=== PATIENT | male | born 1955 | race Caucasian/White ===

== ENCOUNTER 2020-08-16 22:54 | Inpatient (IN) | payer OTHER ==
[~2020-08-16] VITALS: Ht 175.3 cm; Wt 111.5 kg
[~2020-08-16 22:54] MED LIST: ADDERALL 30 MG30 MG PO; ADVAIR HFA 1112 UNIT INH; ASPIRIN325 PO; CHLORTHALIDONE25 MG PO; CLEOCIN HCL300 MG PO; LIPITOR40 MG PO; METFORMIN HCL500 MG; MINOCIN100 MG PO; NICOTINE TRANSD21 M1 TD; PREDNISONE 10 M10 M1 PO; PREDNISONE 20 M20 M1 PO; SEROQUEL XR200 MG PO; SPIRIVA INH; SYMBICORT160 MCG/4. INH; SYNTHROID50 MCG PO; TRINATAL ULTRA1 EACH PO; VITAMIN B-1100 M1 PO
[2020-08-16 22:56] VITALS: BP 153/80
[2020-08-16 23:36] LABS: ABSOLUTE NEUTROPHILS 13.7 thou/uL (1.4-8.2); BASOPHILS 0.5 % (0.0-2.0); EOSINOPHILS 0.6 % (0.0-3.0); HEMATOCRIT 32.1 % (42.0-52.0); HEMOGLOBIN 10.5 gm/dL (14.0-18.0); LYMPHOCYTES 3.5 % (24.0-44.0); MCH 31.1 pg (26.0-34.0); MCHC 32.9 g/dL (28.0-37.0); MCV 94.6 fL (80.0-100.0); MONOCYTES 11.5 % (1.0-8.0); PLATELET COUNT 256 thou/uL (150-400); POLYS 83.9 % (36.0-66.0); RBC 3.39 mil/uL (4.50-6.00); RDW 14.1 % (10.5-14.5); WBC 16.3 thou/uL (4.0-11.0)
[2020-08-16] MEDS ORDERED: PROAIR HFA8.5 GM INH (23:47)
[2020-08-16 23:48] LABS: ALBUMIN 2.1 g/dL (3.4-5.0); CALCIUM 8.6 mg/dL (8.5-10.1); CREATININE 1.2 mg/dL (0.7-1.3); DIRECT BILIRUBIN 0.8 mg/dL (<0.1-0.2); TOTAL BILIRUBIN 1.1 mg/dL (0.2-1.0); TOTAL PROTEIN 6.7 g/dL (6.4-8.2)
[2020-08-16] MEDS ORDERED: ALPRAZOLAM XR3 MG PO (23:48)
[2020-08-16] MEDS ORDERED: PERCOCET 5-3251 EACH PO (23:51)
[2020-08-16 23:58] LABS: POTASSIUM 2.9 mmol/L (3.5-5.1)
[2020-08-17 00:51] LABS: URINE BILIRUBIN NEGATIVE (Negative); URINE BLOOD NEGATIVE (Negative); URINE CLARITY CLEAR; URINE COLOR YELLOW; URINE GLUCOSE-RANDOM* NEGATIVE (Negative); URINE KETONES NEGATIVE (Negative); URINE LEUKOCYTES-REFLEX NEGATIVE (Negative); URINE NITRITE-REFLEX NEGATIVE (Negative); URINE PROTEIN (DIPSTICK) NEGATIVE (Negative); URINE UROBILINOGEN 0.2 E.U./dl (0.2-1.0)
[2020-08-17 06:11] LABS: HEMATOCRIT 32.5 % (42.0-52.0); HEMOGLOBIN 10.6 gm/dL (14.0-18.0); MCH 31.1 pg (26.0-34.0); MCHC 32.7 g/dL (28.0-37.0); MCV 95.2 fL (80.0-100.0); RBC 3.41 mil/uL (4.50-6.00); RDW 14.6 % (10.5-14.5); WBC 17.2 thou/uL (4.0-11.0)
[2020-08-17 06:30] LABS: CALCIUM 8.9 mg/dL (8.5-10.1); POTASSIUM 3.3 mmol/L (3.5-5.1)
[2020-08-17 12:30] VITALS: BP 128/73
[2020-08-17 12:35] VITALS: BP 128/73
[2020-08-17 15:45] VITALS: BP 154/76
--- NOTE | 2020-08-17 16:20 | NUR ---
PT ADMITED FROM ER. ADMISSION HX AND ASSESSMENT COMPLETED. NEW ORDERS NOTED. VSS. REPORT HAVING CHRONIC GENERALISED PAIN. PT ORIENTED TO THE ROOM AND THE CLL LIGHT SYSTEM. FALL PRECAUTION ENFORCED. NO RESPIRATORY DISTRESS NOTED.
[2020-08-17 19:55] VITALS: BP 138/51
[2020-08-18 03:46] VITALS: BP 130/75
[2020-08-18 04:19] LABS: BE(vivo) 3.3 mmol/L (-2 to +3); HCO3 28.8 mmol/L (22.0-26.0); PCO2 48.3 mmHg (35.0-45.0); PO2 62.6 mmHg (80.0-100.0); pH 7.393 (7.360-7.450); sO2 91.6 % (92.0-98.0)
[2020-08-18 06:04] LABS: HEMATOCRIT 28.2 % (42.0-52.0); HEMOGLOBIN 9.3 gm/dL (14.0-18.0); MCH 31.5 pg (26.0-34.0); MCHC 33.1 g/dL (28.0-37.0); MCV 95.3 fL (80.0-100.0); RBC 2.96 mil/uL (4.50-6.00); RDW 14.5 % (10.5-14.5); WBC 13.3 thou/uL (4.0-11.0)
[2020-08-18 06:20] LABS: ALBUMIN 1.8 g/dL (3.4-5.0); CALCIUM 8.9 mg/dL (8.5-10.1); POTASSIUM 3.8 mmol/L (3.5-5.1); TOTAL BILIRUBIN 0.4 mg/dL (0.2-1.0); TOTAL PROTEIN 6.2 g/dL (6.4-8.2)
--- NOTE | 2020-08-18 07:40 | NUR ---
ASSUMED PATIENT CARE AT 1845. PATIENT IS FULLY ALERT AND ORIENTED AND ABLE TO CALL APPROPRIATELY FOR NEEDS. PATIENTS BREATHING AND SINUS TACHYCARDIA WAS CONCERNING FOR NURSE. BLOOD GAS ORDERED FOR PATIENT SHOWING PATIENT PO2 IN LOW 60'S. PATIENT IS EXTREMELY SHORT OF AIR WITH MINIMAL MOVEMENT. NURSE TITRATED PATIENT TO 5.5 LNC. PATIENT IS A HIGH FALL RISK AND VERY IMPULSIVE TO BEDSIDE COMMODE. MULTIPLE EFFORTS MADE TO EDUCATE PATIENT ON NEED FOR ASSISTANCE IN HIS PRESENT CONDITION. DETAILED REPORT GIVEN TO ONCOMING NURSE. CONTINUE PLAN OF CARE.
[2020-08-18 07:50] VITALS: BP 105/74
--- NOTE | 2020-08-18 13:04 | NUR ---
ASSESSMENT CHARTED. PT ALERT AND ORIENTED. SEEN BY DR. LYLES. ORDERS GIVEN TO TRANSFER PT TO ROOM 440. REPORT CALLED IN TO THE NURSE.
--- NOTE | 2020-08-18 14:54 | NUR ---
ASSESSMENT: CM REVIEWED CHART AND SPOKE WITH PT. PT WAS ADMITTED FOR POSSIBLE SEPSIS AND IS CURRENTLY ON IV ANBX. PT REPORTS LIVING IN A HOUSE WITH HIS . PT REPORTS ABOUT 4 STEPS TO ENTER THE HOME AND NO STEPS ONCE HE IS INSIDE. PT REPORTS THAT HE HAS MULTIPLE CANES AT HOME AND ALSO HAS A WALKER. PT REPORTS THAT SHE HAS A BIPAP AT HOME WELL OXYGEN SET UP AT THE HOME AND REPORTS BEING ON AROUND 3-4L AT HIS BASELINE. PT STATES HE HAD HH MULTIPLE YEARS AGO ( PER [facility]) AND STATES HE HAS NEVER BEEN TO A SNF. CM DISCUSSED ROLE. PT IS HOPEFUL HE WILL HAVE NO NEEDS AT D/C. CM WILL CONTINUE TO FOLLOW TO ASSIST NEEDED.
--- NOTE | 2020-08-18 15:34 | NUR ---
ASSUMED CARE AT 1330. PT IS A&O X4. IV ON RIGHT AC IS INTACT AND SHOWS NO REDNESS OR SWELLING. SKIN IS INTACT. BLACK SPOTS ON LOWER EXTREMITY ( LEGS). PT STATES THAT BLACK SPOTS HAVE BEEN THERE FOR A LONG TIME AGO. STANDBY ASSIST. PT HAS DIMINISHED LUNGS AND CRACKLES LUNG. PT HAS CONGESTED COUGH AND COMPLAINS ABOUT COUGH. PT DENIES PAIN, N,V. SOA OCCURS WITH ACTIVITY.
[2020-08-18 15:48] VITALS: BP 121/74
[2020-08-18 16:26] VITALS: BP 121/84
[2020-08-18 19:56] VITALS: BP 101/52
[2020-08-19 04:26] VITALS: BP 1017/64
[2020-08-19 04:28] LABS: ABSOLUTE NEUTROPHILS 10.1 thou/uL (1.4-8.2); BASOPHILS 1.2 % (0.0-2.0); EOSINOPHILS 1.7 % (0.0-3.0); HEMATOCRIT 24.1 % (42.0-52.0); HEMOGLOBIN 7.9 gm/dL (14.0-18.0); LYMPHOCYTES 8.7 % (24.0-44.0); MCH 31.7 pg (26.0-34.0); MCHC 32.9 g/dL (28.0-37.0); MCV 96.3 fL (80.0-100.0); POLYS 77.4 % (36.0-66.0); RBC 2.51 mil/uL (4.50-6.00); RDW 14.8 % (10.5-14.5)
[2020-08-19 04:33] LABS: PLATELET COUNT 415 thou/uL (150-400)
[2020-08-19 04:35] VITALS: BP 107/64
[2020-08-19 07:30] VITALS: BP 112/68
--- NOTE | 2020-08-19 07:38 | NUR ---
PT DENIED PAIN SO FAR.PT ON 3L/NC.PT HAD ONE EPISODE OF INCONTINENCE,BED CHANGED.URINAL AT BEDSIDE WITH DARK COLORED OUTPUT NOTED.PT STILL WITH PRODUCTIVE COUGH.LAB CALLED WITH [employer] [facility],CALLED [employer] ON DUTY AND LEFT A MESSAGE.REPORT TO AM NURSE.
--- NOTE | 2020-08-19 14:33 | NUR ---
ON-GOING ASSESSMENT: CM REVIEWED CHART AND SPOKE WITH PT. PT IS SLOWLY PROGRESSING TOWARDS DISCHARGE GOALS. ATTENDING STATING PT MAY BE READY TO DISCHARGE ON SATURDAY. CM DICUSSED WITH PT. PT REPORTS HE IS UNSURE HE WANTS HH OR NOT AT DISCHARGE. PT HAS NO PREFERENCE OF HH COMPANY IF HE DOES GET HH. CM FAXED REFERRAL TO [facility]. IF PATIENT WANTS HH [facility] CAN ACCEPT. CONTACT THEM AT [phone] AND FAX D/C ORDERS TO THEM AT [phone].
[2020-08-19 16:50] VITALS: BP 124/74
[2020-08-19 21:15] VITALS: BP 126/74
[2020-08-20 04:22] VITALS: BP 141/73
--- NOTE | 2020-08-20 05:55 | NUR ---
PT DENIED PAIN SO FAR.PT STILL WITH PRODUCTIVE COUGH.URINAL AT BEDSIDE WIT DARK COLORED URINE NOTED.BLACK PIGMENTATION NOTED TO HIS BLE.PT RESTING ON HIS BED AT THIS TIME.CALL LIGHT WITHIN REACH.
[2020-08-20 07:14] VITALS: BP 128/75
[2020-08-20] MEDS ORDERED: CEFUROXIME500 MG PO (09:08)
[2020-08-20] MEDS ORDERED: PREDNISONE 5 MG5 M1 PO (09:09)
[2020-08-20 11:36] VITALS: BP 128/75
--- NOTE | 2020-08-20 15:32 | NUR ---
Assumed care of pt. at 0700. Pt. was calm and cooperative. Pt. was cleared for discharge by Dr. Elliott. Discharge education and forms were given to pt. 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 His wifed had searched for it but did not see it in their home. I looked through his belongings with permission and throughout the room and also did not find it. ER, CCU, security, and assistant housekeeping manager [place] were all contacted. None of the departments could find the items. Pt. was told that if the items were found he would be contacted. Pt. left unit with and all belongings.
== END 2020-08-20 15:00 | disposition home or self-care (01) | DRG 871 ==
LOC: ER 22:54 → EROBS 08-17 01:58 → 4S 08-17 01:58 → 2N 08-17 12:57 → 4S 08-18 13:22
PROVIDERS: Emergency Medicine; Hospitalist; Nurse Practitioner Family; ADMIT Hospitalist; ATTEND Hospitalist
DX: A41.9 Sepsis, unspecified organism (principal); J18.9 Pneumonia, unspecified organism; J96.21 Acute and chronic respiratory failure with hypoxia; J44.0 Chronic obstructive pulmonary disease with (acute) lower respiratory infection; Z20.828 Contact with and (suspected) exposure to other viral communicable diseases; I10 Essential (primary) hypertension; E78.00 Pure hypercholesterolemia, unspecified; F32.9 Major depressive disorder, single episode, unspecified; G47.33 Obstructive sleep apnea (adult) (pediatric); E03.9 Hypothyroidism, unspecified; E87.6 Hypokalemia; E78.5 Hyperlipidemia, unspecified; E66.01 Morbid (severe) obesity due to excess calories; Z79.82 Long term (current) use of aspirin; Z87.891 Personal history of nicotine dependence; Z79.899 Other long term (current) drug therapy; Z68.36 Body mass index [BMI] 36.0-36.9, adult; Z23 Encounter for immunization
CPT/HCPCS: 10081; 10102